=== PATIENT | male | born 1955 | race Hispanic/Latino ===

== ENCOUNTER 2017-07-08 16:06 | Inpatient (IN) | payer OTHER, BC ==
[2017-07-08 16:46] VITALS: BMI 28.5
[2017-07-08 17:19] LABS: ALB/GLOB RATIO 1.3 (1.1-1.8); ALBUMIN 4.4 g/dL (3.0-4.8); ALT/SGPT 58 U/L (7-56); AST/SGOT 35 U/L (17-59); BLOOD UREA NITROGEN 16 mg/dL (7-21); CALCIUM 9.3 mg/dL (8.4-10.5); GFR AFRICAN-AMERICAN > 60; GFR NON-AFRICAN AMERICAN > 60; MAGNESIUM 1.9 mg/dL (1.7-2.2)
[2017-07-08 17:22] LABS: BASO # 0.04 K/mm3 (0.0-2.0); BASO % 0.5 % (0.0-3.0); EOS # 0.2 (0.0-0.7); EOS % 2.7 % (1.5-5.0); GRAN # 5.52 (1.4-6.5); GRAN % 62.9 % (50.0-68.0); HEMOGLOBIN 14.7 g/dL (14.0-18.0); LYMPH # 2.4 (1.2-3.4); LYMPH % 26.8 % (22.0-35.0); MEAN CELL VOLUME 88.4 fl (80.0-105.0); MEAN CORPUSCULAR HEMOGLOBIN 29.8 pg (25.0-35.0); MEAN CORPUSCULAR HGB CONC 33.7 g/dl (31.0-37.0); MEAN PLATELET VOLUME 10.2 fl (7.0-11.0); MONO # 0.6 (0.1-0.6); MONO % 7.1 % (1.0-6.0); RBC 4.93 10^6/uL (3.5-6.1); WHITE BLOOD COUNT 8.8 10^3/ul (4.5-11.0)
[2017-07-08 17:57] LABS: TROPONIN I 0.56 ng/mL
[2017-07-08 20:11] LABS: HDL CHOLESTEROL 28 mg/dL (29-60)
--- NOTE | 2017-07-08 20:21 | CARD ---
APPROVED REPORT EKG Measurement Heart [id number] 156P23 [id number] <Conclusion> Normal sinus rhythm Normal ECG
[2017-07-08 20:22] LABS: LDL CHOLESTEROL 123 mg/dL (0-129)
--- NOTE | 2017-07-08 21:31 | ED PDOC ---
Arrival/HPI - General Chief Complaint: Chest Pain Time Seen by Provider: 07/08/17 16:33 Historian: Patient - History of Present Illness Narrative History of Present Illness (Text): 07/08/17 16:35 Ez Sandhu is a 62 year old male, whose past medical history includes migraines, cervical disk surgery, and shoulder surgery, who presents to the emergency department sent in by PMD for intermittent chest pain for several days. Patient states that his last chest pain was two nights ago when shoveling snow. In emergency department, Patient currently has no chest pain. Patient has no cardiac workup in the past. Patient denies any shortness of breath, fever, cough, or any other complaint at this time. Time/Duration: < week Symptom Onset: Gradual Symptom Course: Intermittent Activities at Onset: Light Context: Home Past Medical History - Provider Review Nursing Documentation Reviewed: Yes - Past History Past History: No Previous - Infectious Disease Hx of Infectious Diseases: None - Tetanus Immunization Tetanus Immunization: Unknown - Past Medical History Past Medical History: Non-Contributing - Cardiac Hx Cardiac Disorders: No - Pulmonary Hx Respiratory Disorders: No - Neurological Hx Migraine: Yes - HEENT Hx HEENT Disorder: No - Renal Hx Renal Disorder: No - Endocrine/Metabolic Hx Endocrine Disorders: No - Hematological/Oncological Hx Blood Disorders: No - Integumentary Hx Dermatological Disorder: No - Musculoskeletal/Rheumatological Hx Back Pain: Yes (shoulder) Hx Degenerative Joint Disease: Yes - Psychiatric Hx Substance Use: No - Surgical History Hx Musculoskeletal Surgery: Yes (shoulder surgery, cervical disc fusion) - Anesthesia Hx Anesthesia: Yes Hx Anesthesia Reactions: No Hx Malignant Hyperthermia: No Family/Social History - Physician Review Nursing Documentation Reviewed: Yes Family/Social History: No Known Family HX Smoking Status: Never Smoked Hx Alcohol Use: No Hx Substance Use: No Allergies/Home Meds Allergies/Adverse Reactions: Allergies No Known Allergies Allergy (Verified 03/06/16 17:07) Home Medications: Home Meds Medication Instructions Recorded Confirmed No Known Home Med 03/06/16 07/08/17 Review of Systems - Physician Review All systems were reviewed & negative as marked: Yes - Review of Systems Constitutional: absent: Fevers, Night Sweats Eyes: absent: Vision Changes ENT: absent: Hearing Changes Respiratory: absent: SOB, Cough Cardiovascular: Chest Pain Gastrointestinal: absent: Abdominal Pain Genitourinary Male: absent: Dysuria, Frequency Musculoskeletal: absent: Arthralgias Skin: absent: Rash, Pruritis Neurological: absent: Headache, Dizziness Endocrine: absent: Diaphoresis Hemo/Lymphatic: absent: Adenopathy Psychiatric: absent: Anxiety, Depression Physical Exam Vital Signs Reviewed: Yes Vital Signs Temp Pulse Pulse Resp BP Pulse Ox 07/08/17 22:30 81 18 96 07/08/17 20:58 84 18 126/84 98 07/08/17 18:07 78 18 127/86 98 07/08/17 16:55 82 07/08/17 16:25 98.3 F 83 16 138/95 H 95 Temperature: Afebrile Blood Pressure: Hypertensive Pulse: Regular Respiratory Rate: Normal Appearance: Positive for: Well-Appearing, Non-Toxic, Comfortable Pain Distress: None Mental Status: Positive for: Alert and Oriented X 3 - Systems Exam Head: Present: Atraumatic, Normocephalic Pupils: Present: PERRL Extroacular Muscles: Present: EOMI Conjunctiva: Present: Normal Mouth: Present: Moist Mucous Membranes Neck: Present: Normal Range of Motion Respiratory/Chest: Present: Clear to Auscultation, Good Air Exchange. No: Respiratory Distress, Accessory Muscle Use Cardiovascular: Present: Regular Rate and Rhythm, Normal S1, S2. No: Murmurs Abdomen: Present: Normal Bowel Sounds. No: Tenderness, Distention, Peritoneal Signs Back: Present: Normal Inspection Upper Extremity: Present: Normal Inspection. No: Cyanosis, Edema Lower Extremity: Present: Normal Inspection. No: Edema Neurological: Present: GCS=15, CN II-XII Intact, Speech Normal Skin: Present: Warm, Dry, Normal Color. No: Rashes Psychiatric: Present: Alert, Oriented x 3, Normal Insight, Normal Concentration Medical Decision Making ED Course and Treatment: 07/08/17 16:35 Impression: 62 year old male sent in by PMD for intermittent chest pain for several days. Plan: -- Chest X-ray -- Labs -- Aspirin and Lopressor -- Reassess and disposition Prior Visits: Notes and results from previous visits were reviewed. Patient was last seen in the emergency department on 03/06/16 requested by his primary care physician, Dr. Galeana, due to abnormal aura with migraine and numbness in the left hand. Patient was admitted to hospitalist care for further evaluation. Progress Notes: EKG: Ordered, reviewed, and independently interpreted the EKG. Rate : 80 BPM Rhythm : NSR Interpretation : No ST-segment elevations or depressions, no T-wave inversions, normal intervals. Comparison : No previous EKG for comparison. 07/08/17 21:[address] Galeana about elevated troponin and is aware. Dr. Galeana will call cardiololgy at this time. - Lab Interpretations Lab Results: 07/08/17 16:55 07/08/17 16:55 Lab Results 07/08/17 16:55: Triglycerides 396 H, Cholesterol 251 H, LDL Cholesterol Direct 123, HDL Cholesterol 28 L 07/08/17 16:55: Sodium 140, Potassium 3.9, Chloride 105, Carbon Dioxide 26, Anion Gap 13, BUN 16, Creatinine 0.9, Est GFR ( Amer) > 60, Est GFR (Non- Af Amer) > 60, Random Glucose 84, Calcium 9.3, Magnesium 1.9, Total Bilirubin 0.7, AST 35, ALT 58 H, Alkaline Phosphatase 67, Lactate Dehydrogenase 504, Total Creatine Kinase 71, Troponin I 0.56 H* D, Total Protein 7.7, Albumin 4.4, Globulin 3.3, Albumin/Globulin Ratio 1.3 07/08/17 16:55: WBC 8.8, RBC 4.93, Hgb 14.7, Hct 43.6, MCV 88.4, MCH 29.8, MCHC 33.7, RDW 13.0, Plt Count 211, MPV 10.2, Gran % 62.9, Lymph % (Auto) 26.8, Lynn % (Auto) 7.1 H, Eos % (Auto) 2.7, Baso % (Auto) 0.5, Gran # 5.52, Lymph # 2.4, Lynn # 0.6, Eos # 0.2, Baso # 0.04 I have reviewed the lab results: Yes - RAD Interpretation Radiology Orders: 07/08/17 16:46 CHEST PORTABLE [RAD] Stat - Medication Orders Current Medication Orders: Metoprolol Tartrate (Lopressor) 25 mg PO BRKDIN RAYNE Discontinued Medications Aspirin (Aspirin) 325 mg PO STAT STA Stop: 07/08/17 17:59 Last Admin: 07/08/17 19:02 Dose: 325 mg - Scribe Statement The provider has reviewed the documentation as recorded by the Al Peña Provider Scribe Attestation: All medical record entries made by the Scribe were at my direction and personally dictated by me. I have reviewed the chart and agree that the record accurately reflects my personal performance of the history, physical exam, medical decision making, and the department course for this patient. I have also personally directed, reviewed, and agree with the discharge instructions and disposition. Disposition/Present on Arrival - Present on Arrival Any Indicators Present on Arrival: No History of DVT/PE: No History of Uncontrolled Diabetes: No Urinary Catheter: No History of Decub. Ulcer: No History Surgical Site Infection Following: None - Disposition Have Diagnosis and Disposition been Completed?: Yes Diagnosis: Chest pain, NSTEMI (non-ST elevated myocardial infarction) Disposition: HOSPITALIZED Disposition Time: 18:00 Condition: GUARDED
--- NOTE | 2017-07-09 01:41 | HP ---
HISTORY OF PRESENT ILLNESS: A 62-year-old male presented to the office today with a history of intermittent chest pain over the last several weeks. Most recently on the Saturday while shoveling snow. He states that the pain is across the chest and into the arm. He denies any fever or chills, cough, palpitations. PAST MEDICAL HISTORY: Cervical arthritic stenosis surgery, lumbar disk stenosis, hyperlipidemia. SOCIAL HISTORY: He is a nonsmoker, nondrinker, nondrug user. ALLERGIES: THERE ARE NO KNOWN ALLERGIES. REVIEW OF SYSTEMS: Pertinent findings as the patient has not having any chest pain at the moment; however, he was advised to go into the Emergency Room for further evaluation. PHYSICAL EXAMINATION: GENERAL: He is alert and oriented x3. VITAL SIGNS: His temperature is 98.3, his pulse is 83, his blood pressure is 138/95, respiratory rate was 16 and oxygen saturation is 95% on room air. NECK: Supple. No JVD. CHEST: Symmetric. LUNGS: Appear to be clear. HEART: S1 and S2 rhythm. ABDOMEN: Soft, scaphoid. Positive bowel sounds. EXTREMITIES: Shows no evidence of edema. NEUROLOGIC: He is alert and oriented x3. LABORATORY DATA: Showed WBC of 8.8, RBC 4.93, hemoglobin 14.7, hematocrit 43.3 and platelet count 211. Chemistry showed normal electrolytes. His ALT is 58. His troponin is 0.56. His BUN is 16 and creatinine is 0.9. EKG is reported showing sinus rhythm. Chest x-ray was pending. The patient was given an aspirin 325. The patient will be admitted to monitoring telemetry bed. Cardiology consult requested. Serial cardiac enzymes will be requested. Lipid panel will be ordered and findings have been fully discussed with the patient, his and the Emergency Room staff as well as with the radio despatcher. Alee Galeana MD
[2017-07-09 07:10] LABS: BASO # 0.03 K/mm3 (0.0-2.0); BASO % 0.4 % (0.0-3.0); EOS # 0.3 (0.0-0.7); EOS % 3.8 % (1.5-5.0); GRAN # 4.86 (1.4-6.5); GRAN % 59.2 % (50.0-68.0); HEMOGLOBIN 14.3 g/dL (14.0-18.0); LYMPH # 2.2 (1.2-3.4); MEAN CELL VOLUME 89.1 fl (80.0-105.0); MEAN CORPUSCULAR HEMOGLOBIN 28.9 pg (25.0-35.0); MEAN CORPUSCULAR HGB CONC 32.5 g/dl (31.0-37.0); MEAN PLATELET VOLUME 10.3 fl (7.0-11.0); MONO # 0.8 (0.1-0.6); MONO % 9.6 % (1.0-6.0); RBC 4.94 10^6/uL (3.5-6.1); RED CELL DISTRIBUTION WIDTH 13.2 % (11.5-14.5); WHITE BLOOD COUNT 8.2 10^3/ul (4.5-11.0)
[2017-07-09 07:50] LABS: ALB/GLOB RATIO 1.4 (1.1-1.8); ALBUMIN 4.2 g/dL (3.0-4.8); ALT/SGPT 44 U/L (7-56); AST/SGOT 32 U/L (17-59); BLOOD UREA NITROGEN 17 mg/dL (7-21); CALCIUM 9.4 mg/dL (8.4-10.5); GFR AFRICAN-AMERICAN > 60; GFR NON-AFRICAN AMERICAN > 60; TROPONIN I 0.51 ng/mL
[2017-07-09] MEDS ORDERED: Enoxaparin 100 mg Syringe SC ONE (09:00)
--- NOTE | 2017-07-09 09:30 | RAD ---
HISTORY: chest pain COMPARISON: 03/06/2016 FINDINGS: LUNGS: No active pulmonary disease. PLEURA: No significant pleural effusion identified, no pneumothorax apparent. CARDIOVASCULAR: Normal. OSSEOUS STRUCTURES: No significant abnormalities. VISUALIZED UPPER ABDOMEN: Normal. OTHER FINDINGS: None. IMPRESSION: No active disease.
--- NOTE | 2017-07-09 09:47 | CON ---
DATE: 07/08/2017 INDICATIONS: Chest pain, NSTEMI. HISTORY OF PRESENT ILLNESS: This is a 62-year-old male, admitted with several days of chest pain. He has been noting vague chest pain for at least several weeks or perhaps longer. In the last few days he has had 2 more severe episodes. Yesterday, he was seen by Dr. Galeana and admitted to the hospital. In the emergency room, troponins are elevated. He had subtle EKG changes. He is currently pain free without symptoms. There is no shortness of breath, orthopnea, PND, syncope, presyncope, lightheadedness, dizziness, vertigo, palpitation, edema, claudication. No fever, chills, cough, sputum production, hemoptysis. No abdominal pain, nausea, vomiting, diarrhea, constipation, melena. PAST MEDICAL HISTORY: His past medical history is notable for hypertension, migraine headaches, C-spine surgery and shoulder surgery. There is no history of myocardial infarction, rheumatic fever, angina, congestive heart failure, arrhythmia, diabetes, stroke, TIA or gout. He does have a history of elevated cholesterol level. MEDICATIONS ON ADMISSION: None. ALLERGIES: NO KNOWN ALLERGIES. FAMILY HISTORY: Positive for heart disease. A brother has had coronary intervention. 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 He is . He does not smoke cigarettes. He does not drink alcohol significantly. REVIEW OF SYSTEMS: Ten-point review of systems is otherwise unremarkable except as noted above. PHYSICAL EXAMINATION: GENERAL: He is a well-developed male, in no acute distress, lying on the stretcher in the emergency room. VITAL SIGNS: Unremarkable. He is in sinus rhythm, 75 beats per minute; blood pressure 142/85; respirations 18; O2 sat 96-98% on room air. HEENT: Reveals no neck vein distention, thyromegaly, carotid bruit. Mucous membranes moist. Conjunctivae pink. NECK: Supple. LUNGS: Lung egan clear. HEART: Examination of the heart revealed normal first and second heart sounds. ABDOMEN: Soft. Bowel sounds present. No mass, organomegaly, tenderness, rebound, guarding, CVA tenderness or palpable abdominal aortic aneurysm. EXTREMITIES: Revealed no cyanosis, clubbing or edema. NEUROLOGIC: Awake, alert and oriented. SKIN: Warm and dry. No rash or cellulitis. PSYCHIATRIC: Normal as to mood and affect. LABORATORY AND IMAGING: A portable chest x-ray is not interpreted yet. To my reading, it shows clear lung egan. No infiltrate or effusion. EKG shows regular sinus rhythm. Subtle lateral ST changes with a slightly biphasic T-wave. CBC is unremarkable. Chemistry is unremarkable except that the potassium is 5.1 this morning. Normal BUN and creatinine. Blood sugar 84 and 111. LFTs basically are normal. CK 71. Troponins are 0.56, 0.57 and 0.51. Triglycerides 396, cholesterol 251, LDL 123, HDL 28. 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 At this point, he will be admitted to the hospital on a telemetry bed. We will plan for a cardiac catheterization probably tomorrow morning. He will get aspirin, Plavix, Lovenox, metoprolol, Lipitor. I will check an echocardiogram. I will repeat his EKG this morning. We will check his PT, INR and PTT in preparation for a catheterization. He can be out of bed to a chair. He will report any further episodes of chest pain. We will make additional recommendations based on the cardiac catheterization. Jacobo Schwarz MD MTDPoornima
--- NOTE | 2017-07-09 19:57 | PN ---
DATE: SUBJECTIVE: A 62-year-old male in the Emergency Room at this time. He is not having any chest pain at the moment and the nursing staff report that there were no problems during the night. PHYSICAL EXAMINATION VITAL SIGNS: Showed temperature of 97.8, pulse of 68, blood pressure 121/75, respiratory rate is 20 and oxygen saturation is 95% on room air. LABORATORY DATA: Showed WBC of 8.2, RBC 4.94, hemoglobin .14.3, hematocrit 44 and platelet count 192. Chemistry shows normal electrolytes. His sodium is 142, potassium 5.1, chloride 104, BUN of 17 and creatinine of 1. His troponin is 0.51. On admission it was 0.56 then it was 0.57 and is now 0.51. Triglycerides are 396, his cholesterol is 251 and his HDL is 28. ASSESSMENT AND PLAN: The note from Cardiology is noted. The patient is currently on statin, aspirin and metoprolol and anticipating cardiac catheterization in the morning. He is aware of the clinical findings at this time and he is aware that if he get any evidence of chest pain he is to notify the nurses. Alee Galeana MD
--- NOTE | 2017-07-09 22:31 | CARD ---
APPROVED REPORT EKG Measurement Heart [id number] WI 150P1 [id number] <Conclusion> Normal sinus rhythm Normal ECG
[2017-07-10] MEDS ORDERED: Phenylephrine 10 mg/ml Inj ONE (06:57)
[2017-07-10] MEDS ORDERED: Midazolam 2 MG/2 ML VIAL ONE ×2 (06:58→08:15)
[2017-07-10] MEDS ORDERED: Iodixanol 320 MG/ML 100 ML BOTTLE IV ONE (06:59)
[2017-07-10] MEDS ORDERED: Iohexol 350mgl/ml 50 ML ONE (06:59)
[2017-07-10] MEDS ORDERED: Iodixanol 320 MG/ML 200 ML BOTTLE IV ONE (06:59)
[2017-07-10] MEDS ORDERED: HEPARIN SODIUM/NS 2,000 ML IV ONE (06:59)
[2017-07-10] MEDS ORDERED: Nitroglycerin 50mg in D5W 50 MG/250 ML BOTTLE IV ONE (06:59)
[2017-07-10] MEDS ORDERED: Lidocaine 2% Inj (20ml) ONE (07:05)
[2017-07-10] MEDS ORDERED: Eptifibatide 20 mg/10mL Inj IVP ONE (08:48)
[2017-07-10] MEDS ORDERED: Eptifibatide 0.75 mg/ml 75 MG/100 ML BOTTLE IV ONE (08:48)
[2017-07-10] MEDS ORDERED: Sodium Chloride 0.9% 1,000 ML IV SCH (09:00)
--- NOTE | 2017-07-10 12:20 | CARD ---
APPROVED REPORT EKG Measurement Heart [id number] NC 162P16 [id number] <Conclusion> Normal sinus rhythm Normal ECG
--- NOTE | 2017-07-10 14:58 | PN ---
DATE: 07/10/2017 SUBJECTIVE: The patient is seen lying in bed on telemetry. He underwent cardiac catheterization earlier today and was found to have severe LAD lesion, as well as, significant RCA disease. PCI to LAD was performed. He is currently resting comfortably in bed. Denies any chest pain or dyspnea. CURRENT MEDICATIONS: Include intravenous Integrilin, aspirin, Plavix, Lipitor 20 mg daily, metoprolol 25 mg b.i.d., and Xanax p.r.n. PHYSICAL EXAMINATION: GENERAL: He is a middle-aged male who appears comfortable at the present time. VITAL SIGNS: His blood pressure is 106/70 with a pulse of 84 and sinus, respirations are 14. He is afebrile. HEENT: No JVD. CHEST: Clear to auscultation. HEART: PMI in normal position. No pathological murmur or gallops noted. ABDOMEN: Soft and nontender. Normoactive bowel sounds. EXTREMITIES: No edema. DIAGNOSTIC DATA: No blood work pending from this morning. Repeat troponin was 0.57. IMPRESSION: 1. Status post oaf-KN-mijryes elevation myocardial infarction secondary to severe left anterior descending artery disease. In addition, he does have significant right coronary artery disease. 2. Status post successful percutaneous coronary intervention of left anterior descending artery with drug-eluting stent. 3. Rest of problems as noted. RECOMMENDATIONS: Aspirin and Plavix therapy would be continued for at least 1 year. IV Integrilin will be continued through day today. Echocardiogram has been ordered and will be reviewed. Plans were made for staged PCI of his RCA within the next several weeks. Continue risk factor control as advised. Anuj Zhao MD
[2017-07-10] MEDS: Eptifibatide 0.75 mg/ml 75 MG/100 ML BOTTLE IV SCH ×2 (15:10→21:58)
[2017-07-10 18:38] VITALS: RESP 20
--- NOTE | 2017-07-10 21:13 | PN ---
SUBJECTIVE: A 62-year-old male with a history of chest pain with elevated troponins, underwent a cardiac catheterization, who was found to have disease in the LAD and the RCA. Dr. Zhao did a cardiac catheterization with angioplasty and stenting of the LAD. PHYSICAL EXAMINATION: VITAL SIGNS: Showed temperature of 97.8, his pulse is 81, his blood pressure is 109/74, and respiratory rate is 16. GENERAL: He is alert and oriented x3. NECK: Supple. There is no JVD. EXTREMITIES: No evidence of edema. MEDICATIONS: At this time, Ambien 5 mg at bedtime p.r.n., Ecotrin 81 mg daily, Colace 100 mg b.i.d, Integrilin, Lipitor 20 mg daily, Lopressor 25 mg b.i.d., Plavix 75 mg daily, Tylenol 2 tabs q. 4 hours p.r.n., Xanax 0.25 mg p.o. b.i.d. p.r.n. for anxiety. The patient will be monitored on telemetry bed status post procedure. Alee Galeana MD
[2017-07-11 06:03] VITALS: TEMP 97.8; O2SAT 96
[2017-07-11 06:35] LABS: BASO # 0.04 K/mm3 (0.0-2.0); BASO % 0.5 % (0.0-3.0); EOS # 0.3 (0.0-0.7); EOS % 2.9 % (1.5-5.0); GRAN # 5.66 (1.4-6.5); GRAN % 65.5 % (50.0-68.0); HEMOGLOBIN 13.3 g/dL (14.0-18.0); LYMPH # 1.9 (1.2-3.4); LYMPH % 22.2 % (22.0-35.0); MEAN CELL VOLUME 88.7 fl (80.0-105.0); MEAN CORPUSCULAR HEMOGLOBIN 28.9 pg (25.0-35.0); MEAN CORPUSCULAR HGB CONC 32.6 g/dl (31.0-37.0); MEAN PLATELET VOLUME 10.2 fl (7.0-11.0); MONO # 0.8 (0.1-0.6); MONO % 8.9 % (1.0-6.0); RBC 4.6 10^6/uL (3.5-6.1); RED CELL DISTRIBUTION WIDTH 13.3 % (11.5-14.5); WHITE BLOOD COUNT 8.6 10^3/ul (4.5-11.0)
[2017-07-11 06:45] LABS: BLOOD UREA NITROGEN 17 mg/dL (7-21); CALCIUM 8.9 mg/dL (8.4-10.5); GFR AFRICAN-AMERICAN > 60; GFR NON-AFRICAN AMERICAN > 60
--- NOTE | 2017-07-11 07:56 | CP.PCM.PN ---
Subjective - Date & Time of Evaluation Date of Evaluation: 07/11/17 Time of Evaluation: 07:00 - Subjective Subjective: Stable on 2R. He feels well. S/P LAD PCI yesterday. No CP or SOB. Case d/w Dr. Zhao. Cath report noted. V/S noted. RSR PE: Lungs: clear Cor.: S1S2 Abd.: soft Ext.: no edema. Groin OK Neuro.: alert I/O= 888/700 recorded Labs today noted. ECG 07/10/17: RSR, No change Objective - Vital Signs/Intake and Output Vital Signs (last 24 hours): Temp Pulse Resp BP Pulse Ox 97.8 F 62 20 104/63 96 07/11/17 06:00 07/11/17 06:00 07/11/17 06:00 07/11/17 06:00 07/11/17 06:00 Intake and Output: 07/11/17 07/11/17 06:59 18:59 Intake Total 648 Output Total 500 Balance 148 - Medications Medications: Current Medications Acetaminophen (Tylenol 325mg Tab) 650 mg PO Q4H PRN PRN Reason: Pain, Mild (1-3) Alprazolam (Xanax) 0.25 mg PO BID PRN PRN Reason: Anxiety Stop: 07/17/17 09:00 Aspirin (Aspirin Chewable) 81 mg PO DAILY [facility] Last Admin: 07/10/17 19:00 Dose: Not Given Atorvastatin Calcium (Lipitor) 20 mg PO DIN [facility] Last Admin: 07/10/17 19:02 Dose: 20 mg Clopidogrel Bisulfate (Plavix) 75 mg PO DAILY [facility] Docusate Sodium (Colace) 100 mg PO BID [facility] Last Admin: 07/10/17 19:01 Dose: Not Given Metoprolol Tartrate (Lopressor) 25 mg PO BRKDIN [facility] Last Admin: 07/10/17 19:02 Dose: 25 mg Zolpidem Tartrate (Ambien) 5 mg PO HS PRN PRN Reason: Insomnia - Labs Labs: 07/11/17 05:30 07/11/17 05:30 Assessment and Plan - Assessment and Plan (Free Text) Assessment: Chest Pain/NSTEMI CAD, s/p PCI LAD MEEK 07/10/17 with residual RCA disease HBP HLD H/O C-Spine and Shoulder surgery Plan: D/C later today with plans for office F/U and RCA PCI 1 -2 weeks. ASA 81/day, Atorvastatin 40/day , Metoprolol ER 50/day Plavix 75/day. Minimum x 1 year Restricted activity level until RCA done. Will stay out of work for now.
[2017-07-11] MEDS ORDERED: Metoprolol Succinate 50 mg XL Tab PO SCH (08:00)
[2017-07-11 08:06] VITALS: BP 116/73
--- NOTE | 2017-07-11 08:09 | CARDCATH ---
CARDIAC CATHETERIZATION REPORT PROCEDURE DATE: 07/10/2017 PROCEDURES: 1. Selective left and right coronary angiography. 2. Left ventriculography. 3. Percutaneous coronary intervention of left anterior descending with drug-eluting stent. 4. Right femoral arteriography. 5. Mynx deployment. HISTORY: This is a 62-year-old man who presented to the Emergency Room with non-ST segment elevation myocardial infarction. Cardiac catheterization was advised. INDICATIONS: Cde-UF-fxqirat elevation myocardial infarction. HEMODYNAMICS: Aortic pressure was 110/70 with a left ventricular pressure of 110/16. CORONARY ANATOMY: 1. Left mainstem was short and normal. 2. Left anterior descending artery had a mild 30% proximally tapering and a 95% stenosis in the early midportion of the vessel with evidence of haziness and thrombus. The distal flow is EILEEN grade II. The diagonal branch had mild disease. The ostium of the first diagonal branch was involved in the LAD lesion with 70% ostial stenosis. 3. Left circumflex artery had mild irregularities. It gave raise to small first obtuse marginal branch and two additional moderate size obtuse marginal branches. 4. The right coronary artery was large and dominant. This had a 70% lesion in the proximal segment followed by 80% lesion in the early mid segment. PDA and PLV branches were normal. LEFT VENTRICULOGRAPHY: A hand injection was performed in left ventricle revealing evidence of mild anterolateral hypokinesis with an overall ejection fraction of 50%. There was no aortic valve gradient noted on catheter pullback. Mitral regurgitation was not assessed. CORONARY INTERVENTION: Total of 5000 units of intravenous heparin was administered and the left coronary system was cannulated with use of a 3.5 EBU guide catheter. The lesion in the LAD was successfully closed with the use of [place] wire. Following this, initial inflation was performed with a 3.0 x 15 mm balloon. Subsequently, 3.5 x 18 mm Resolute drug-eluting stent was deployed at the side of the stenosis and inflated to 14 atmosphere for 45 seconds. There was 0% residual stenosis following the intervention. The first diagonal branch had unchanged moderate ostial stenosis. EILEEN grade 3 flow was present following the intervention; however, there did appear to be small amount of thrombus present in the very distal LAD. RIGHT FEMORAL ARTERIOGRAPHY: The right femoral arteriogram was performed in the BROOKS projection. This revealed no evidence of significant disease and appropriate level of arterial puncture. The puncture site was then closed with deployment of Mynx device. CONCLUSIONS: 1. Severe LAD and RCA disease. 2. Mildly reduced LV systolic function. 3. Successful PCI of the LAD with drug-eluting stent. RECOMMENDATIONS: Aspirin and Plavix therapy will be continued for at least one year. Statin and beta-tracey therapy will be continued as well. IV Integrilin was administered given the presence of a thrombus in the vessel. Plans were made for stage PCI of the RCA within in the next several weeks. Anuj Zhao MD cc: Lobo Caballero MD and Alee Galeana MD MTDD
--- NOTE | 2017-07-11 10:50 | CARD ---
APPROVED REPORT EXAM: Two-dimensional and M-mode echocardiogram with Doppler and color Doppler. Other Information Quality : AverageRhythm : INDICATION Non STEMI 2D DIMENSIONS Left Atrium (2D)3.3 (1.6-4.0cm)IVSd1.1 (0.7-1.1cm) LVDd4.7 (3.9-5.9cm)PWd1.0 (0.7-1.1cm) LVDs3.5 (2.5-4.0cm)FS (%) 25.9 % LVEF (%)50.0 (>50%) M-Mode DIMENSIONS Aortic Root3.40 (2.2-3.7cm)Aortic Cusp Exc.1.80 (1.5-2.0cm) Aortic Valve AoV Peak Bmxpnwye644.0cm/s Mitral Valve MV E Yzxslqqd29.8cm/sMV A Gkohcfuq42.1cm/sE/A ratio0.8 TDI Lateral E' Peak V11.80cm/sMedial E' Peak V7.12cm/sE/Lateral E'4.6 E/Medial E'7.6 Pulmonary Valve PV Peak Ggdcddqt57.5cm/sPV Peak Grad.2mmHg Tricuspid Valve TR Peak Ghwwdbje085me/sRAP [id number] Peak Gr.25mmHg [id number] LEFT VENTRICLE The left ventricle is normal size. There is normal left ventricular wall thickness. The overall left ventricular EF is normal. The left ventricular ejection fraction is within the normal range. There is mild apical hypokinesis. RIGHT VENTRICLE The right ventricle is normal size. ATRIA The left atrium size is normal. The right atrium size is normal. The interatrial septum is intact with no evidence for an atrial septal defect. AORTIC VALVE The aortic valve is normal in structure. MITRAL VALVE The mitral valve is normal in structure. TRICUSPID VALVE The tricuspid valve is normal in structure. There is trace tricuspid regurgitation. PULMONIC VALVE The pulmonic valve is not well visualized. GREAT VESSELS The aortic root is normal in size. PERICARDIAL EFFUSION There is no pericardial effusion. <Conclusion> The left ventricle is normal size. There is normal left ventricular wall thickness. The overall left ventricular EF is normal. There is mild apical hypokinesis.
[2017-07-11 13:32] VITALS: PULSE 75
--- NOTE | 2017-07-11 17:50 | CARD ---
APPROVED REPORT EKG Measurement Heart [id number] <Conclusion> Normal sinus rhythm Nonspecific T wave abnormality Abnormal ECG
--- NOTE | 2017-07-12 07:33 | DS ---
HISTORY OF PRESENT ILLNESS: A 62-year-old male who was admitted to [facility] with a history of chest pain and arm pain. He was advised to be seen in the emergency room after the patient had been seen in the office and was found to have elevated troponin with an EKG that showed a normal sinus rhythm. 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 The angioplasty with PTCA of a left anterior descending was performed by Dr. Zhao, and he tolerated the procedure well and was subsequently discharged home to be followed as an outpatient with a recommendation to have within two weeks the RCA lesion treated. PHYSICAL EXAMINATION: VITAL SIGNS: His temp was 97.8. His blood pressure was 116/73, oxygen sat was 96% on room air, pulse was 75. MEDICATIONS: His medications would consist of Ecotrin 81 mg daily, Lipitor 40 mg daily, metoprolol succinate 50 mg daily, Plavix 75 mg daily. He will be followed as an outpatient. LABORATORY DATA: His laboratory data on discharge are WBC of 8.6, RBC 4.6, hemoglobin 13.3, hematocrit 40.8, platelet count was 203,000. Chemistry showed normal electrolytes. His BUN was 17, creatinine 0.9. He had a normal chest x-ray. He will be followed as an outpatient, understood all the clinical findings and procedures that were performed while in the hospital. He had cholesterol of 251, triglycerides 396 and LDL of 123. Alee Galeana MD
== END 2017-07-11 13:54 | disposition home or self-care (01) | DRG 247 ==
LOC: ED 16:06 → ERH 18:14 → 2RSO 07-09 11:58 → UNDODISIN 07-09 12:13
PROVIDERS: ADMIT Internal Medicine; ATTEND Internal Medicine
PROC: 027034Z Dilation of Coronary Artery, One Artery with Drug-eluting Intraluminal Device, Percutaneous Approach (ICD-10-PCS; principal; 2017-07-10)
PROC: 4A023N7 Measurement of Cardiac Sampling and Pressure, Left Heart, Percutaneous Approach (ICD-10-PCS; 2017-07-10)
PROC: B211YZZ Fluoroscopy of Multiple Coronary Arteries using Other Contrast (ICD-10-PCS; 2017-07-10)
PROC: B215YZZ Fluoroscopy of Left Heart using Other Contrast (ICD-10-PCS; 2017-07-10)
PROC: 3E033PZ Introduction of Platelet Inhibitor into Peripheral Vein, Percutaneous Approach (ICD-10-PCS; 2017-07-10)
DX: I21.4 Non-ST elevation (NSTEMI) myocardial infarction (principal); I25.10 Atherosclerotic heart disease of native coronary artery without angina pectoris; E78.00 Pure hypercholesterolemia, unspecified; M48.061 Spinal stenosis, lumbar region without neurogenic claudication; I10 Essential (primary) hypertension